=== PATIENT | male | born 1960 | race Caucasian/White ===

== ENCOUNTER 2016-11-04 01:28 | Inpatient (IN) | payer MEDICARE ==
[~2016-11-04] VITALS: Ht 188 cm; Wt 108.8 kg
[2016-11-04] VITALS (7 sets, daily range): BP systolic 128–160; BP diastolic 60–84; PULSE 74–83; RESP 16–19; TEMP 96.3–98.3; O2SAT 94–99
--- NOTE | 2016-11-04 02:30 | PD ---
HPI Chief Complaint: Psychiatric Symptoms Time Seen by Provider: 02:27 Travel History International Travel<30 days: No Contact w/Intl Traveler<30days: No Traveled to known affect area: No History of Present Illness HPI 56-year-old white male presents to emergency department under [place] act by PD. The patient was contacted by PD as he was walking down the street. The patient was slow to respond to PD. They felt that the patient was unreliable and they were concerned that he was suffering from mental illness. The patient states that he takes INVega. He states that he is behind on his injections. He denies any suicidal homicidal ideation. He admits to tobacco and alcohol. He denies any other drugs. He denies any medical complaints. [facility] Past Medical History Narrative Medical Schizophrenia Tetanus Vaccination: Unknown Past Surgical History Surgical History: No Previous Surgery Social History Alcohol Use: Yes Tobacco Use: Yes Substance Use: No Allergies-Medications (Allergen,Severity, Reaction): Coded Allergies: No Known Allergies (Unverified , 11/04/16) Reported Meds & Prescriptions Reported Meds & Active Scripts Active No Active Prescriptions or Reported Medications Review of Systems ROS Limitations: Poor Historian Psychiatric: No: Anxiety, Depression, Suicidal Ideations, Disorder of Thought, Mood Disorder, Substance Abuse, Homicidal Ideation Physical Exam Narrative GENERAL: Well-nourished, well-developed patient. SKIN: Warm and dry. HEAD: Normocephalic and atraumatic. EYES: No scleral icterus. No injection or drainage. ENT: No nasal drainage noted. Mucous membranes pink. Airway patent. NECK: Supple, trachea midline. Moves head freely without obvious discomfort. CARDIOVASCULAR: Regular rate and rhythm without murmurs, gallops, or rubs. RESPIRATORY: Breath sounds equal bilaterally. No accessory muscle use. GASTROINTESTINAL: Abdomen soft, non-tender, nondistended. EXTREMITIES: No cyanosis or edema. BACK: Nontender without obvious deformity. No CVA tenderness. NEURO: Patient is alert and oriented. no sensorimotor deficits. Nonfocal. Normal speech. PSYCH: No delusions. No auditory or visual hallucinations. Data Data Last Documented VS Vital Signs Date Time Temp Pulse Resp B/P Pulse Ox O2 Delivery O2 Flow Rate FiO2 11/04/16 02:43 16 11/04/16 02:25 98.3 83 148/73 98 Orders Complete Blood Count With Diff (11/04/16 02:02) Comprehensive Metabolic Panel (11/04/16 02:02) Psych Screen (11/04/16 02:02) Drug Screen, Random Urine (11/04/16 02:02) Alcohol (Ethanol) (11/04/16 02:02) Labs Laboratory Tests Test 11/04/16 02:35 White Blood Count 10.1 TH/MM3 Red Blood Count 5.27 MIL/MM3 Hemoglobin 16.6 GM/DL Hematocrit 47.8 % Mean Corpuscular Volume 90.8 FL Mean Corpuscular Hemoglobin 31.6 PG Mean Corpuscular Hemoglobin 34.8 % Concent Red Cell Distribution Width 14.2 % Platelet Count 360 TH/MM3 Mean Platelet Volume 7.7 FL Neutrophils (%) (Auto) 71.3 % Lymphocytes (%) (Auto) 17.5 % Monocytes (%) (Auto) 8.5 % Eosinophils (%) (Auto) 1.9 % Basophils (%) (Auto) 0.8 % Neutrophils # (Auto) 7.2 TH/MM3 Lymphocytes # (Auto) 1.8 TH/MM3 Monocytes # (Auto) 0.9 TH/MM3 Eosinophils # (Auto) 0.2 TH/MM3 Basophils # (Auto) 0.1 TH/MM3 CBC Comment DIFF FINAL Differential Comment Sodium Level 137 MEQ/L Potassium Level 3.5 MEQ/L Chloride Level 100 MEQ/L Carbon Dioxide Level 27.5 MEQ/L Anion Gap 10 MEQ/L Blood Urea Nitrogen 9 MG/DL Creatinine 0.80 MG/DL Estimat Glomerular Filtration 101 ML/MIN Rate Random Glucose 105 MG/DL Calcium Level 9.0 MG/DL Total Bilirubin 0.6 MG/DL Aspartate Amino Transf 15 U/L (AST/SGOT) Alanine Aminotransferase 21 U/L (ALT/SGPT) Alkaline Phosphatase 66 U/L Total Protein 7.1 GM/DL Albumin 3.9 GM/DL Urine Opiates Screen NEG Urine Barbiturates Screen NEG Urine Amphetamines Screen NEG Urine Benzodiazepines Screen NEG Urine Cocaine Screen NEG Urine Cannabinoids Screen NEG Ethyl Alcohol Level LESS THAN 3 MG/DL MDM Medical Decision Making Medical Screen Exam Complete: Yes Emergency Medical Condition: Yes Medical Record Reviewed: Yes Interpretation(s) Laboratory Tests Test 11/04/16 02:35 White Blood Count 10.1 TH/MM3 Red Blood Count 5.27 MIL/MM3 Hemoglobin 16.6 GM/DL Hematocrit 47.8 % Mean Corpuscular Volume 90.8 FL Mean Corpuscular Hemoglobin 31.6 PG Mean Corpuscular Hemoglobin 34.8 % Concent Red Cell Distribution Width 14.2 % Platelet Count 360 TH/MM3 Mean Platelet Volume 7.7 FL Neutrophils (%) (Auto) 71.3 % Lymphocytes (%) (Auto) 17.5 % Monocytes (%) (Auto) 8.5 % Eosinophils (%) (Auto) 1.9 % Basophils (%) (Auto) 0.8 % Neutrophils # (Auto) 7.2 TH/MM3 Lymphocytes # (Auto) 1.8 TH/MM3 Monocytes # (Auto) 0.9 TH/MM3 Eosinophils # (Auto) 0.2 TH/MM3 Basophils # (Auto) 0.1 TH/MM3 CBC Comment DIFF FINAL Differential Comment Sodium Level 137 MEQ/L Potassium Level 3.5 MEQ/L Chloride Level 100 MEQ/L Carbon Dioxide Level 27.5 MEQ/L Anion Gap 10 MEQ/L Blood Urea Nitrogen 9 MG/DL Creatinine 0.80 MG/DL Estimat Glomerular Filtration 101 ML/MIN Rate Random Glucose 105 MG/DL Calcium Level 9.0 MG/DL Total Bilirubin 0.6 MG/DL Aspartate Amino Transf 15 U/L (AST/SGOT) Alanine Aminotransferase 21 U/L (ALT/SGPT) Alkaline Phosphatase 66 U/L Total Protein 7.1 GM/DL Albumin 3.9 GM/DL Urine Opiates Screen NEG Urine Barbiturates Screen NEG Urine Amphetamines Screen NEG Urine Benzodiazepines Screen NEG Urine Cocaine Screen NEG Urine Cannabinoids Screen NEG Ethyl Alcohol Level LESS THAN 3 MG/DL Differential Diagnosis MDM: High Differential diagnoses: Schizophrenia, schizoaffective disorder, bipolar, anxiety, depression, adjustment reaction, mood disorder NOS, ODD, depressive disorder NOS, dementia, dementia with agitation, psychosis NOS, substance induced mood disorder, intermittent explosive disorder, Asperger syndrome, infection,electrolyte abnormality, malingering. Narrative Course Mental health screening discussed with the patient. Psychiatric screen ordered. The patient been medically cleared. This is medical clearance for psychological evaluation Diagnosis Primary Impression: medical clearance for psychological evaluation Scripts No Active Prescriptions or Reported Meds Condition: Isai Pablo Nov 04, 2016 02:30
[2016-11-04 02:50] LABS: AUTOMATED NEUTROPHIL # 7.2 TH/MM3 (1.8-7.7); BASOPHIL # 0.1 TH/MM3 (0-0.2); BASOPHIL % 0.8 % (0.0-2.0); EOSINOPHIL # 0.2 TH/MM3 (0-0.4); EOSINOPHIL % 1.9 % (0.0-4.0); HEMATOCRIT 47.8 % (39.0-51.0); HEMO FLAGS DIFF FINAL; LYMPH % 17.5 % (9.0-44.0); LYMPHOCYTE # 1.8 TH/MM3 (1.0-4.8); MEAN CELL VOLUME 90.8 FL (80.0-100.0); MEAN CORPUSCULAR HEMOGLOBIN 31.6 PG (27.0-34.0); MEAN CORPUSCULAR HGB CONC 34.8 % (32.0-36.0); MONO % 8.5 % (0.0-8.0); NEUT % 71.3 % (16.0-70.0); PLATELET COUNT 360 TH/MM3 (150-450); RED BLOOD COUNT 5.27 MIL/MM3 (4.50-5.90); RED CELL DISTRIBUTION WIDTH 14.2 % (11.6-17.2); WHITE BLOOD COUNT 10.1 TH/MM3 (4.0-11.0)
[2016-11-04 02:59] LABS: AMPHETAMINE, URINE NEG (NEG); BARBITURATES, URINE NEG (NEG); COCAINE, URINE NEG (NEG)
[2016-11-04 03:14] LABS: ALT (GPT) 21 U/L (12-78); ANION GAP 10 MEQ/L (5-15); AST (GOT) 15 U/L (15-37); BICARBONATE 27.5 MEQ/L (21.0-32.0); BLOOD UREA NITROGEN 9 MG/DL (7-18); CHLORIDE 100 MEQ/L (98-107); GLOMERULAR FILTRATION RATE 101 ML/MIN (>89); POTASSIUM 3.5 MEQ/L (3.5-5.1); SODIUM (NA) 137 MEQ/L (136-145)
[2016-11-04 03:17] LABS: ALKALINE PHOSPHATASE 66 U/L (45-117); TOTAL BILIRUBIN ADULT 0.6 MG/DL (0.2-1.0)
[2016-11-04] MEDS ORDERED: INVE6TAB3 PO (06:03)
[2016-11-05 06:29] VITALS: RESP 18
[2016-11-05 12:44] VITALS: BP 115/59; PULSE 77; RESP 18; O2SAT 97
[2016-11-05 22:42] VITALS: BP 168/82; PULSE 83; RESP 19; O2SAT 97
[2016-11-06 02:22] VITALS: BP 120/58; PULSE 66; RESP 18
[2016-11-06 05:15] VITALS: BP 146/81; PULSE 72; RESP 19; O2SAT 97
[2016-11-06] MEDS ORDERED: INVE6TAB3 PO (07:50)
[2016-11-06] MEDS ORDERED: VIST50CA PO (07:50)
[2016-11-06] MEDS ORDERED: BENZTROPINE MESYLATE 2 MG/2 ML VIAL IM PRN (08:00)
[2016-11-06] MEDS ORDERED: LORazepam 2 MG/ML VIAL IM PRN (08:00)
[2016-11-06] MEDS ORDERED: BENZTROPINE MESYLATE 1 MG TAB PO PRN (08:00)
[2016-11-06] MEDS ORDERED: LORazepam 1 MG TAB PO PRN (08:00)
[2016-11-06] MEDS ORDERED: MAGNESIUM HYDROXIDE SUSP 30 ML CUP PO PRN (08:00)
[2016-11-06] MEDS ORDERED: ALUMINUM/MAGNESIUM/SIMETH 30 ML CUP PO PRN (08:00)
--- NOTE | 2016-11-06 08:05 | HHI.HP ---
Provisional Diagnosis Admission Date 11/06/2016 [place] I. 1. Schizophrenia, undifferentiated type, acute exacerbation [place] II. Deferred [place] V. GAF is 30 presently Certification of Person's Competence To Provide Express and Informed Consent I have personally examined Trey Tian , a person being served at [facility] on, Nov 06, 2016 07:52. Express and informed consent means consent voluntarily given in writing, by a competent person, after sufficient explanation and disclosure of the subject matter involved to enable the person to make a knowing and willful decision without any element of force, fraud, deceit, duress, or other form of constraint or coercion. This person is 18 years of age or older, is not now known to be incompetent to consent to treatment with a guardian advocate, and does not have a health care surrogate or proxy currently making medical treatment decisions. I have found this person to be one of the following: [] Competent to provide express and informed consent, as defined above, for voluntary admission to this facility and is competent to provide express and informed consent for treatment. He/she has the consistent capacity to make well reasoned, willful, and knowing decisions concerning his or her medical or mental health treatment. The person fully and consistently understands the purpose of the admission for examination/placement and is fully capable of personally exercising all rights assured [place] Incompetent to provide express and informed consent to voluntary admission, and this is incompetent to provide express and informed consent to treatment. The person must be transferred to involuntary status and a petition for a guardian advocate filed with the Circuit Court. [x] Refusing to provide express and informed consent to voluntary admission but is competent to provide express and informed consent for treatment. The person must be discharged or transferred to involuntary status. Form shall be completed within 24 hours of a person's arrival at the receiving facility and filed in the clinical record of each person: 1. Admitted on a voluntary basis 2. Permitted to provide express and informed consent to his/her own treatment 3. Allowed to transfer from involuntary to voluntary status 4. Prior to permitting a person to consent to his or her own treatment after having been previously found incompetent to consent to treatment. History of Present Illness Capacity: Has Capacity (to consent for medications) HPI Mr. Tian is a 56-year-old male with a history of schizophrenia who presents under a [place] act by [facility]'s office alleging that the patient was walking down a end street and when approached by the officers remain silent and would not answer questions. He appeared to be chewing on what turned out to be opined treat Perfecto. Officer was allegedly later advised that the patient was a suspect in a trespassing complaint after becoming hostile in a store. Reviewing our electronic medical record, it appears this is patient's first visit to [place]. Patient seen and examined. Chart reviewed. Case discussed with nurse in the J- pod. Nurse has been in contact with Víctor Londono, with whom the patient follows on an outpatient basis. The patient is prescribed Invega 6 mg twice daily and Vistaril 50 mg twice daily. He was last seen in the office there on October 24. On my examination today, patient presents as malodorous and disheveled. He is extremely psychomotor slowed with thought blocking, which somewhat limits the interview. He is an extremely vague historian with poverty of thought and speech. What I endeavored to inquire as to whether he is experiencing audiovisual hallucinations, he remains noncommittal. He does appear internally preoccupied. He does not verbalize any SI or HI but is unreliable contract for safety at present. At one point, he says "no sir, it's not Mr. Tian and you know that." Affect is quite flat. Psychiatric interview limited for reasons noted above. Past psychiatric history: Patient alludes to a 30 year history of mental illness. Beyond that, I cannot get much from him. See collateral obtained by nursing staff from patient's outpatient provider, above. Family history: "Well sitter, to tell you the truth, I'm not sure I have much family left." When I inquire as to whether his family had mental illness while they were living, he says "well, yes." Chemical dependency history: "I never really learned how to explain that, sir." Urine toxicology and alcohol level both negative. Social history: When I ask about marital status and children he says "that's the fallacy that I could never explain to you, sir." He does not answer when I ask about level of education. When I ask about history he says "I would like to apply for some work." At this point, he tires of the interview and says "I don't want to talk about anymore of that." When I press a little further he says with an air of finality "well, sir, that's enough." Patient is unable or perhaps unwilling to provide me with any contact information for collateral. He says that he needs to think about it. Review of Systems ROS Limitations: Psychotic, Poor Historian Other No reported headache, vision or hearing changes, chest pain, shortness of breath , bowel or bladder issues. No other reported physical complaints. Past Psych History Psychological trauma history No reported trauma history Violence risk - others (6 mos) Indeterminate. Allegations of hostility in a store. Patient is presently calm but psychotic and unpredictable. Violence risk - self (6 mos) Indeterminate at present. Substance Abuse History Drugs/Alcohol past 12 months See above Past Family Social History Coded Allergies: No Known Allergies (Unverified , 11/04/16) Past Medical History Patient unable to provide. Unclear at present. Reported Medications Hydroxyzine Pamoate (Vistaril)50 Mg Cap50 Mg PO BID Ref 0 11/06/16 Paliperidone ER (Invega)6 Mg Tab6 Mg PO BID #30 TAB Ref 0 11/06/16 Discontinued Reported Medications Paliperidone ER (Invega)6 Mg Tab6 Mg PO DAILY #30 TAB Ref 0 11/04/16 See above Family History See above Social History See above Patient's Strengths (min. 2) In a monitored setting. Verbally fluent. Physical Exam Physical examination completed by ED provider. On my examination today, patient presents as disheveled but otherwise fairly well-nourished and well- developed and in no acute physical distress. No hand tremor, no dystonia, no dyskinesia, no other motoric abnormalities noted. Labs and vital signs reviewed : Vital Signs Vital Signs Date Time Temp Pulse Resp B/P Pulse Ox O2 Delivery O2 Flow Rate FiO2 11/06/16 06:37 72 19 11/06/16 05:15 146/81 97 Room Air 11/06/16 02:22 99 11/04/16 12:54 96.3 Lab Results Item Value Date Time White Blood Count 10.1 TH/MM3 11/04/16 023 Hemoglobin 16.6 GM/DL 11/04/16 023 Platelet Count 360 TH/MM3 11/04/16 0235 Sodium Level 137 MEQ/L 11/04/16 0235 Potassium Level 3.5 MEQ/L 11/04/16 0235 Chloride Level 100 MEQ/L 11/04/16 0235 Carbon Dioxide Level 27.5 MEQ/L 11/04/16 0235 Blood Urea Nitrogen 9 MG/DL 11/04/16 0235 Creatinine 0.80 MG/DL 11/04/16 0235 Aspartate Amino Transf (AST/SGOT) 15 U/L 11/04/16 0235 Alanine Aminotransferase (ALT/SGPT) 21 U/L 11/04/16 0235 Alkaline Phosphatase 66 U/L 11/04/16 0235 Random Glucose 105 MG/DL 11/04/16 023 Urine toxicology and alcohol level undetectable. Mental Status Examination Patient is in hospital gown. He is somewhat disheveled and malodorous. He is awake and alert and oriented to person. When I endeavored to perform mental status testing, the patient is either unable or unwilling to cooperate. He says "it is just a joke, sir." Patient is somewhat psychomotor slowed but otherwise there are no abnormal motor movements noted. No posturing or stereotypies or other signs of catatonia. Language and fund of knowledge are difficult to assess at present. Speech is extremely slow and monotone and there is paucity of speech. Difficult to assess mood but affect is quite flat. Thought process slowed with significant thought blocking. Difficult to assess but there is likely some underlying paranoia. Patient does appear somewhat internally stimulated. Patient does not verbalize any SI or HI but is unreliable to contract for safety at present. Insight and judgment are poor. Assessment & Plan Problem List: (1) Schizophrenia ICD Code: F20.9 Assessment & Plan This is a 56-year-old male with psychiatric history as detailed above who presents to the ED under a [place] act. On my examination today, the patient presents as psychomotor slowed with thought blocking and appearance of internal stimulation. Unclear if there was some degree of medication nonadherence but the patient does have a history of schizophrenia, treated on an outpatient basis at [facility]. There are note presently any signs of catatonia, but this is certainly in the differential. No evident medical cause for patient's current presentation based on laboratories and exam. I suspect patient is experiencing a decompensated psychotic episode and requires psychiatric admission for safety , observation and stabilization. Admit inpatient. Patient is presently not consenting for admission, and I have initiated a petition for involuntary psychiatric hospitalization and consulted for a second. Patient does retain capacity at this time to consent for medications. I will first try to resume outpatient medication regimen of Invega 6mg twice daily and Vistaril. If this is helpful, we could consider Invega Sustenna. Ativan as needed for anxiety, Cogentin as needed for EPS, Benadryl as needed for sleep. Vitals every shift. Counselor to see him try to obtain collateral. Disposition planning. Estimated length of stay: 5-7 days. Discharge Planning Pending psychiatric stabilization Request HC Surrog/Guard Advoc?: No (not at this time) Problem Qualifiers (1) Schizophrenia: Qualified Code: F20.3 - Undifferentiated schizophrenia Lui Petit MD Nov 06, 2016 08:05
[2016-11-06] MEDS: REMOVE OLD PATCH T-DERMAL SCH (09:00)
[2016-11-06] MEDS: PALIPERIDONE ER 6 MG TAB PO SCH ×2 (09:00→21:00)
[2016-11-06] MEDS: NICOTINE 21 MG/24 HR PATCH T-DERMAL SCH (09:00)
[2016-11-06 10:35] VITALS: BP 148/82; PULSE 79; RESP 18; TEMP 98.2; O2SAT 95
--- NOTE | 2016-11-06 15:03 | PD.CONS ---
Provisional Diagnosis Admission Date Nov 06, 2016 at 07:50 [place] I. 1. Schizophrenia, undifferentiated type, acute exacerbation [place] II. Deferred [place] V. GAF is 30 presently History of Present Illness Service Psychiatry Consult Requested By Primary Care Physician No Primary Care Physician HPI Mr. Tian is a 56-year-old male with a history of schizophrenia who presents under a [place] act by [facility]'s office alleging that the patient was walking down a end street and when approached by the officers remain silent and would not answer questions. He appeared to be chewing on what turned out to be opined treat Perfecto. Officer was allegedly later advised that the patient was a suspect in a trespassing complaint after becoming hostile in a store. Reviewing our electronic medical record, it appears this is patient's first visit to [place]. Patient seen and examined. Chart reviewed. Case discussed with nurse in the J- pod. Nurse has been in contact with Víctor Londono, with whom the patient follows on an outpatient basis. The patient is prescribed Invega 6 mg twice daily and Vistaril 50 mg twice daily. He was last seen in the office there on October 24. On my examination today, patient presents as malodorous and disheveled. He is extremely psychomotor slowed with thought blocking, which somewhat limits the interview. He is an extremely vague historian with poverty of thought and speech. What I endeavored to inquire as to whether he is experiencing audiovisual hallucinations, he remains noncommittal. He does appear internally preoccupied. He does not verbalize any SI or HI but is unreliable contract for safety at present. At one point, he says "no sir, it's not Mr. Tian and you know that." Affect is quite flat. Psychiatric interview limited for reasons noted above. Past psychiatric history: Patient alludes to a 30 year history of mental illness. Beyond that, I cannot get much from him. See collateral obtained by nursing staff from patient's outpatient provider, above. Family history: "Well sitter, to tell you the truth, I'm not sure I have much family left." When I inquire as to whether his family had mental illness while they were living, he says "well, yes." Chemical dependency history: "I never really learned how to explain that, sir." Urine toxicology and alcohol level both negative. Social history: When I ask about marital status and children he says "that's the fallacy that I could never explain to you, ." He does not answer when I ask about level of education. When I ask about history he says "I would like to apply for some work." At this point, he tires of the interview and says "I don't want to talk about anymore of that." When I press a little further he says with an air of finality "well, sir, that's enough." Patient is unable or perhaps unwilling to provide me with any contact information for collateral. He says that he needs to think about it. 11/06/16 Above note dictated by Dr. petit reviewed and agreed with. Patient is a 56- year-old male admitted to Dr. Petit service under the [employer] act. Patient seen by me with nurse in his room. Patient is disheveled and malodorous making no eye contact having mumbled answers and is somewhat angry manner. Is vague about auditory hallucinations is vague about compliance medication is vague about having mental illness. Dr. Petit #first opinion petition supporting [employer] act. I agree. Patient does meet criteria for involuntary psychiatric hospitalization under the [place] act. Thus will cosign second opinion petition supporting [employer] act Past Family Social History Coded Allergies: No Known Allergies (Unverified , 11/04/16) Reported Medications Hydroxyzine Pamoate (Vistaril)50 Mg Cap50 Mg PO BID Ref 0 11/06/16 Paliperidone ER (Invega)6 Mg Tab6 Mg PO BID #30 TAB Ref 0 11/06/16 Discontinued Reported Medications Paliperidone ER (Invega)6 Mg Tab6 Mg PO DAILY #30 TAB Ref 0 11/04/16 Current Medications Medications (Trade) Dose Ordered Sig/Franko Route Start Time Stop Time Status Last Admin (Ativan) 1 mg Q6H PRN PO 11/06/16 08:00 (Ativan Inj) 1 mg Q6H PRN IM 11/06/16 08:00 (Benadryl) 50 mg HS PRN PO 11/06/16 08:00 (Tylenol) 650 mg Q4H PRN PO 11/06/16 08:00 (Milk Of Magnesia Liq) 30 ml DAILY PRN PO 11/06/16 08:00 (Mag-Al Plus Susp Liq) 30 ml Q6H PRN PO 11/06/16 08:00 (Habitrol 21 Mg Patch.24 Hr) 1 patch DAILY T-DERMAL 11/06/16 09:00 (Cogentin) 1 mg Q12H PRN PO 11/06/16 08:00 (Cogentin Inj) 1 mg Q12H PRN IM 11/06/16 08:00 Miscellaneous Information 1 DAILY T-DERMAL 11/06/16 09:00 (Invega Er) 6 mg BID PO 11/06/16 09:00 11/06/16 09:00 (Vistaril) 50 mg BID PO 11/06/16 09:00 11/06/16 09:00 Patient's Strengths (min. 2) In a monitored setting. Verbally fluent. Physical Exam Vital Signs Vital Signs Date Time Temp Pulse Resp B/P Pulse Ox O2 Delivery O2 Flow Rate FiO2 11/06/16 10:35 98.2 79 18 148/82 95 11/06/16 05:15 Room Air 11/06/16 02:22 99 Mental Status Examination 56 old white male who appears stated age in bed markedly psychomotor retarded with a very slow poor brief responses Appearance Disheveled and malodorous Speech: Hesitant, Slow, Other (whispered) Orientation: Person, Place Memory: Impaired (describe) Thought Process: Linear Thought Content: Paranoid Hallucination Type: None (denies) Attention and Concentration: Other (poor) Suicidal Ideation: No Previous Suicide Attempts: No (denies) Homicidal Ideation: No (denies) Previous Homicide Attempts: No Insight: Poor Judgement: Poor Affect: Other (marked decrease range of motion intensity) Mood: Irritable, Other (strict did) Motor Activity: Normal gait Assessment & Plan Problem List: (1) Schizophrenia ICD Code: F20.9 Assessment & Plan To be determined Request HC Surrog/Guard Advoc?: No (not at this time) Problem Qualifiers (1) Schizophrenia: Qualified Code: F20.3 - Undifferentiated schizophrenia Trey Marlow MD Nov 06, 2016 15:03
[2016-11-06 17:51] VITALS: BP 152/74; PULSE 58; RESP 18; TEMP 98.3; O2SAT 96
[2016-11-07 06:18] VITALS: BP 134/63; PULSE 63; RESP 18; TEMP 97.8; O2SAT 93
[2016-11-07 08:18] LABS: ANION GAP 6 MEQ/L (5-15); BICARBONATE 30.4 MEQ/L (21.0-32.0); BLOOD UREA NITROGEN 11 MG/DL (7-18); CHLORIDE 102 MEQ/L (98-107); GLOMERULAR FILTRATION RATE 110 ML/MIN (>89); HDL CHOLESTEROL 39.8 MG/DL (40.0-60.0); LDL CHOLESTEROL 67 MG/DL (0-99); POTASSIUM 4.1 MEQ/L (3.5-5.1); SODIUM (NA) 138 MEQ/L (136-145)
[2016-11-07] MEDS: REMOVE OLD PATCH T-DERMAL SCH (09:00)
[2016-11-07] MEDS: PALIPERIDONE ER 6 MG TAB PO SCH ×2 (09:00→20:15)
[2016-11-07] MEDS: NICOTINE 21 MG/24 HR PATCH T-DERMAL SCH (09:00)
--- NOTE | 2016-11-07 09:53 | HHI.PYPN ---
Subjective Remarks Patient seen and examined. Chart reviewed. Case discussed with nursing staff who reports that the patient refused Invega overnight. Patient reportedly also fairly behaviorally disorganized. For example, he requested a urinal from the RN and then was preparing to use it in the hallway in full view of the unit before he was reminded by staff where he was. On my examination today, patient is calm but disorganized. He does engage in some echopraxia. Psychotic ambivalence is present. When I ask if he is experiencing AVH, he says, "yes, and also no." He did accept Invega yesterday morning and this morning and has no evident side effects from this. Review of Systems ROS Limitations: Psychotic, Poor Historian Other No physical complaints today. Objective Alert: Yes [place]: Person Mood: Calm Affect: Blunted Memory Intact: Comment (Not formally assessed) Hallucinations: Other (Appears internally preoccupied.) Delusions: No Delusion Type: Other (None elicited) Suicidal: Ideation (No SI) Homicidal: Ideation (No HI) Insight/Judgement Poor Remarks Some echopraxia noted. TP disorganized. Grooming and hygiene fair at best. Labs Test 11/07/16 07:30 Sodium Level 138 MEQ/L Potassium Level 4.1 MEQ/L Chloride Level 102 MEQ/L Carbon Dioxide Level 30.4 MEQ/L Anion Gap 6 MEQ/L Blood Urea Nitrogen 11 MG/DL Creatinine 0.74 MG/DL Estimat Glomerular Filtration 110 ML/MIN Rate Random Glucose 82 MG/DL Calcium Level 8.4 MG/DL Triglycerides Level 102 MG/DL Cholesterol Level 127 MG/DL LDL Cholesterol 67 MG/DL HDL Cholesterol 39.8 MG/DL Cholesterol/HDL Ratio 3.19 RATIO Labs reviewed. HgbA1c pending. Vitals/IOs Vital Signs Date Time Temp Pulse Resp B/P Pulse Ox O2 Delivery O2 Flow Rate FiO2 11/07/16 06:18 97.8 63 18 134/63 93 11/06/16 05:15 Room Air 11/06/16 02:22 99 Assessment & Plan Problem List: (1) Schizophrenia ICD Code: F20.9 Assessment & Plan Continue to offer oral Invega and Vistaril. Patient would likely do well with Invega Sustenna if he will consent for this. Continue to monitor on the inpatient unit. Continue other medications and care as ordered. Justification for Cont. Inpt. Impairment in reality testing. Impairment in social function. Discharge Planning Pending stabilization. Request HC Surrog/Guard Advoc?: No Problem Qualifiers (1) Schizophrenia: Qualified Code: F20.3 - Undifferentiated schizophrenia Lui Petit MD Nov 07, 2016 09:53
[2016-11-07 17:21] LABS: HEMOGLOBIN A1a 0.9 %; HEMOGLOBIN Ao 85.6 %; HEMOGLOBIN F 1.1 %; HEMOGLOBIN LA1C 1.9 %; HEMOGLOBIN P3 3.4 %
[2016-11-07 18:21] VITALS: BP 133/81; PULSE 91; RESP 18; TEMP 98.5; O2SAT 96
[2016-11-08 06:05] VITALS: BP 128/70; PULSE 70; RESP 18; TEMP 97.9; O2SAT 96
[2016-11-08] MEDS: PALIPERIDONE ER 6 MG TAB PO SCH ×2 (08:42→20:51)
[2016-11-08] MEDS: NICOTINE 21 MG/24 HR PATCH T-DERMAL SCH (09:00)
[2016-11-08] MEDS: REMOVE OLD PATCH T-DERMAL SCH (09:00)
--- NOTE | 2016-11-08 13:59 | HHI.PYPN ---
Subjective Remarks Patient seen and examined. Chart reviewed. Case discussed with nursing staff. On my examination today, patient is calm and pleasant. He is sitting in the day room. His thought process seems more organized on Invega. No SI or HI. He is agreeable to starting Invega Sustenna after a discussion of the risks and benefits. He denies side effects from the Invega or other medications. Review of Systems ROS Limitations: Poor Historian Other No physical complaints today Objective Alert: Yes [place]: Person, Place Mood: Calm Affect: Blunted Memory Intact: Comment (not assessed) Hallucinations: Other (perhaps a little less internally preoccupied) Delusions: No Delusion Type: Other (none) Suicidal: Ideation (No SI) Homicidal: Ideation (No HI) Insight/Judgement Poor Remarks Thought process somewhat more organized. Speech within normal limits for rate, tone and volume. Grooming and hygiene are fair. No motor abnormalities noted. Labs Labs reviewed. No new labs. Vitals/IOs Vital Signs Date Time Temp Pulse Resp B/P Pulse Ox O2 Delivery O2 Flow Rate FiO2 11/08/16 06:05 97.9 70 18 128/70 96 11/06/16 05:15 Room Air 11/06/16 02:22 99 Assessment & Plan Problem List: (1) Schizophrenia ICD Code: F20.9 Assessment & Plan Invega Sustenna 234 mg IM today with plans for a booster dose after the weekend. Given the degree of psychotic decompensation he exhibited on initial presentation, I will temporarily continue the oral Invega even though this is not technically required. We will monitor for side effects. Continue to monitor on the inpatient unit. Continue other medications and care as ordered. Justification for Cont. Inpt. Impairment in reality construction. Medication changes in process. High risk for decompensation pending completion of medication changes. Discharge Planning Pending psychiatric stabilization. Hopeful that the patient will be ready for discharge shortly after administration of booster dose of Invega Sustenna, i.e. beginning of next week. Request HC Surrog/Guard Advoc?: No Problem Qualifiers (1) Schizophrenia: Qualified Code: F20.3 - Undifferentiated schizophrenia Lui Petit MD Nov 08, 2016 13:59
[2016-11-08] MEDS ORDERED: PALIPERIDONE PALMITATE 234 MG/1.5 ML SYRINGE IM ONE (14:00)
[2016-11-08 17:25] VITALS: BP 106/63; PULSE 93; RESP 18; TEMP 98.6
[2016-11-08] MEDS: ACETAMINOPHEN 325 MG TAB PO PRN (20:52)
[2016-11-09 06:13] VITALS: BP 141/76; PULSE 68; RESP 18; TEMP 98.2; O2SAT 98
[2016-11-09] MEDS: ACETAMINOPHEN 325 MG TAB PO PRN (08:54)
[2016-11-09] MEDS: PALIPERIDONE ER 6 MG TAB PO SCH ×2 (08:54→20:59)
--- NOTE | 2016-11-09 11:10 | HHI.PYPN ---
Subjective Remarks Patient discussing his wish to donate some property he owns 2 and unknown cristel. This physician is unable to determine if he actually owns and he property. However he remains off task. Review of Systems ROS Limitations: Clinical Condition Except as stated in HPI: all other systems reviewed are Neg Objective Alert: Yes [place]: Person, Place Mood: Anxious Affect: Restricted, Blunted Memory Intact: Comment (not assessed) Hallucinations: Other (perhaps a little less internally preoccupied) Delusions: Yes Delusion Type: Paranoid, Other (none) Suicidal: Ideation (No SI) Homicidal: Ideation (No HI) Insight/Judgement Impaired. Vitals/IOs Vital Signs Date Time Temp Pulse Resp B/P Pulse Ox O2 Delivery O2 Flow Rate FiO2 11/09/16 06:13 98.2 68 18 141/76 98 11/06/16 05:15 Room Air 11/06/16 02:22 99 Assessment & Plan Problem List: (1) Schizophrenia ICD Code: F20.9 Assessment & Plan Estimated LOS: 5 days patient remains psychotic but at least he is fairly calm. We'll consider hydrating the antipsychotic medication and providing more time for efficacy. Justification for Cont. Inpt. Unable to care for self. Request HC Surrog/Guard Advoc?: No Problem Qualifiers (1) Schizophrenia: Qualified Code: F20.3 - Undifferentiated schizophrenia Ilya Winters MD Nov 09, 2016 11:10
[2016-11-09 17:30] VITALS: BP 141/76; PULSE 68; RESP 18; TEMP 98.2; O2SAT 98
[2016-11-10 06:04] VITALS: BP 121/60; PULSE 57; RESP 16; TEMP 98; O2SAT 97
[2016-11-10] MEDS: PALIPERIDONE ER 6 MG TAB PO SCH ×2 (08:37→20:41)
--- NOTE | 2016-11-10 18:04 | HHI.PYPN ---
Subjective Remarks Patient was seen and case discussed with nursing. Patient is behaving well, sleeping well on the unit. Denies auditory or visual hallucinations. No delusions could be elicited. Insight remains poor. Largely seclusive to self. Blunted affect Objective Alert: Yes [place]: Person, Place Mood: Calm Affect: Blunted Memory Intact: Comment (not assessed) Hallucinations: Other (perhaps a little less internally preoccupied) Delusions: Yes Delusion Type: Paranoid (mildly) Suicidal: Ideation (No SI) Homicidal: Ideation (No HI) Insight/Judgement Poor Vitals/IOs Vital Signs Date Time Temp Pulse Resp B/P Pulse Ox O2 Delivery O2 Flow Rate FiO2 11/10/16 06:04 98.0 57 16 121/60 97 Assessment & Plan Problem List: (1) Schizophrenia ICD Code: F20.9 Assessment & Plan Continue current treatment plan Justification for Cont. Inpt. Patient will decompensate in a less restrictive setting Request HC Surrog/Guard Advoc?: No Problem Qualifiers (1) Schizophrenia: Qualified Code: F20.3 - Undifferentiated schizophrenia Mike Rivera DO Nov 10, 2016 18:04
[2016-11-10 19:02] VITALS: BP 130/61; PULSE 59; RESP 18; TEMP 98.7; O2SAT 98
[2016-11-10] MEDS: diphenhydrAMINE HCL 50 MG CAP PO PRN (20:42)
[2016-11-11] MEDS: ACETAMINOPHEN 325 MG TAB PO PRN ×2 (01:40→09:10)
[2016-11-11 05:43] VITALS: BP 134/69; PULSE 83; RESP 18; TEMP 98.1; O2SAT 95
[2016-11-11] MEDS: PALIPERIDONE ER 6 MG TAB PO SCH ×2 (09:06→20:13)
--- NOTE | 2016-11-11 15:13 | HHI.PYPN ---
Subjective Remarks Patient was seen and case discussed with nursing. Patient is pleasant and cooperative with exam. She remains flat and internally preoccupied. Says he enjoys talking to himself but is not sure if he has hallucinations. Sometimes spends extended periods of time staring into the nursing area. Told attack earlier today that he lost money to black men. His compliant with his medications. Denies suicidal ideation intent or plan Objective Alert: Yes [place]: Person, Place Mood: Calm Affect: Blunted Memory Intact: Comment (not assessed) Hallucinations: Other (perhaps a little less internally preoccupied) Delusions: Yes Delusion Type: Paranoid (mildly) Suicidal: Ideation (No SI) Homicidal: Ideation (No HI) Insight/Judgement Poor Vitals/IOs Vital Signs Date Time Temp Pulse Resp B/P Pulse Ox O2 Delivery O2 Flow Rate FiO2 11/11/16 05:43 98.1 83 18 134/69 95 Assessment & Plan Problem List: (1) Schizophrenia ICD Code: F20.9 Assessment & Plan Continue current treatment plan Justification for Cont. Inpt. Patient will decompensate in a less restrictive setting Request HC Surrog/Guard Advoc?: No Problem Qualifiers (1) Schizophrenia: Qualified Code: F20.3 - Undifferentiated schizophrenia Mike Rivera DO Nov 11, 2016 15:13
[2016-11-11 18:10] VITALS: BP 126/79; PULSE 75; RESP 18; TEMP 97.4; O2SAT 100
[2016-11-11] MEDS: diphenhydrAMINE HCL 50 MG CAP PO PRN (20:13)
[2016-11-12 05:58] VITALS: BP 140/77; PULSE 59; RESP 18; TEMP 97.5; O2SAT 96
[2016-11-12] MEDS: PALIPERIDONE ER 6 MG TAB PO SCH (08:53)
--- NOTE | 2016-11-12 10:20 | HHI.PYPN ---
Subjective Remarks Patient seen and examined with nurse. Chart reviewed. Case discussed with nursing staff who reports that the patient received Benadryl overnight in addition to his Invega and was subsequently incontinent of urine 1 secondary to excessive sedation. On my examination today, the patient reports he had a "good sleep" last night. He does not complain of the incontinence. He seems much more organized today versus before the weekend. He denies any suicidal or homicidal ideation. He denies any audiovisual hallucinations. He would like to sign voluntary and requests to begin final discharge planning. Denies side effects from medications. Review of Systems Other No physical complaints today Objective Alert: Yes [place]: Person, Place (at least) Mood: Calm Affect: Blunted Memory Intact: Comment (not formally assessed) Hallucinations: Other (denies AVH) Delusions: No Delusion Type: Other (no delusions elicited) Suicidal: Ideation (denies SI) Homicidal: Ideation (denies HI) Insight/Judgement Improving Remarks No motoric abnormalities noted. Steady gait and station. Not presently sedated. Thought process linear. Speech within normal limits for rate, tone and volume. Labs Labs reviewed. No new labs. Vitals/IOs Vital Signs Date Time Temp Pulse Resp B/P Pulse Ox O2 Delivery O2 Flow Rate FiO2 11/12/16 05:58 97.5 59 18 140/77 96 Assessment & Plan Problem List: (1) Schizophrenia ICD Code: F20.9 Assessment & Plan Patient's psychosis seems to be improved with the benefit of Invega Sustenna. We will plan to administer the booster dose of Invega Sustenna tomorrow. In the meantime in light of excessive sedation overnight, I will discontinue his oral Invega. Continue to monitor on the inpatient unit. Continue other medications and care as ordered. Patient may sign voluntary at this point. Justification for Cont. Inpt. Medication changes. Discharge Planning Anticipate discharge in next 1-2 days barring clinical deterioration. Request HC Surrog/Guard Advoc?: No Problem Qualifiers (1) Schizophrenia: Qualified Code: F20.3 - Undifferentiated schizophrenia Lui Petit MD Nov 12, 2016 10:20
[2016-11-12 17:55] VITALS: BP 115/72; PULSE 80; RESP 16; TEMP 98.6; O2SAT 95
[2016-11-12] MEDS: diphenhydrAMINE HCL 50 MG CAP PO PRN (20:21)
[2016-11-12] MEDS: ACETAMINOPHEN 325 MG TAB PO PRN (20:21)
[2016-11-13 05:56] VITALS: BP 132/76; PULSE 80; RESP 18; TEMP 97.5; O2SAT 99
[2016-11-13] MEDS ORDERED: PALIPERIDONE PALMITATE 156 MG/ML SYRINGE IM ONE (09:00)
--- NOTE | 2016-11-13 13:04 | HHI.PYPN ---
Subjective Remarks Patient seen and examined. Chart reviewed. Case discussed in treatment team with nurse, counselor and recreation therapist. Per nurse, patient received his Invega Sustenna dose this morning without incident. No reported further episodes of incontinence. On my examination today, the patient is pleasant and cooperative but somewhat hypoverbal. He seems a little bit more disorganized than in previous evaluations. I discussed this with him, and we agreed to add back some of his oral Invega temporarily as he seemed to do better when this was in place. No SI or HI voiced. No reported side effects from medications. Review of Systems ROS Limitations: Poor Historian Other No physical complaints today Objective Alert: Yes [place]: Person (at least) Mood: Calm Affect: Euthymic Memory Intact: Comment (not formally assessed) Hallucinations: Other (no AVH reported) Delusions: No Delusion Type: Other (no dawit delusions) Suicidal: Ideation (no SI) Homicidal: Ideation (no HI) Insight/Judgement Fair at best Remarks No motor abnormalities noted. Thought process perhaps a little more disorganized today. Somewhat hypoverbal as well. Grooming and hygiene good though. Labs Labs reviewed. No new labs. Vitals/IOs Vital Signs Date Time Temp Pulse Resp B/P Pulse Ox O2 Delivery O2 Flow Rate FiO2 11/13/16 05:56 97.5 80 18 132/76 99 Assessment & Plan Problem List: (1) Schizophrenia ICD Code: F20.9 Assessment & Plan Add back PO Invega 3mg BID. This augments Invega Sustenna. Continue to monitor on the inpatient unit. Continue other medications and care as ordered. Justification for Cont. Inpt. Concern for some worsening of patient's thought disorganization. I am making medication changes to try to ameliorate this. I would like to monitor the patient overnight to ensure that he is improving. Discharge Planning Monitor overnight. Possible discharge tomorrow as the patient requests this so long as he is improving from a psychosis standpoint. Request HC Surrog/Guard Advoc?: No Problem Qualifiers (1) Schizophrenia: Qualified Code: F20.3 - Undifferentiated schizophrenia Lui Petit MD Nov 13, 2016 13:04
[2016-11-13 18:11] VITALS: BP 120/99; PULSE 77; RESP 18; TEMP 99.1; O2SAT 99
[2016-11-13] MEDS: diphenhydrAMINE HCL 50 MG CAP PO PRN (20:41)
[2016-11-13] MEDS: PALIPERIDONE ER 3 MG TAB PO SCH (20:41)
[2016-11-14 06:21] VITALS: BP 129/67; PULSE 93; RESP 16; TEMP 98; O2SAT 96
[2016-11-14] MEDS: PALIPERIDONE ER 3 MG TAB PO SCH (09:26)
--- NOTE | 2016-11-14 10:48 | HHI.PYPN ---
Objective Alert: Yes [place]: Person (at least) Mood: Calm Affect: Euthymic Memory Intact: Comment (not formally assessed) Hallucinations: Other (no AVH reported) Delusions: No Delusion Type: Other (no dawit delusions) Suicidal: Ideation (no SI) Homicidal: Ideation (no HI) Vitals/IOs Vital Signs Date Time Temp Pulse Resp B/P Pulse Ox O2 Delivery O2 Flow Rate FiO2 11/14/16 06:21 98.0 93 16 129/67 96 Assessment & Plan Problem List: (1) Schizophrenia ICD Code: F20.9 Assessment & Plan Estimated LOS: days Request HC Surrog/Guard Advoc?: No Problem Qualifiers (1) Schizophrenia: Qualified Code: F20.3 - Undifferentiated schizophrenia Lui Petit MD Nov 14, 2016 10:48
[2016-11-14] MEDS ORDERED: INVE3TAB2 PO (10:53)
[2016-11-14] MEDS ORDERED: PALI156P IM (10:53)
--- NOTE | 2016-11-14 10:53 | HHI.DS ---
Psychiatry Discharge Summary Inpatient Psychiatric care?: Yes Advance Directive: No Reason Not Provided: DOES NOT HAVE Mental Health AdvanceDirective: No Health Care Proxy: No Admission Admission Date Nov 06, 2016 at 07:50 Admission Diagnosis: (1) Schizophrenia ICD Code: F20.9 Brief History Mr. Tian is a 56-year-old male with a history of schizophrenia who presents under a [place] act by [facility]'s office alleging that the patient was walking down a end street and when approached by the officers remain silent and would not answer questions. He appeared to be chewing on what turned out to be opined treat Perfecto. Officer was allegedly later advised that the patient was a suspect in a trespassing complaint after becoming hostile in a store. Reviewing our electronic medical record, it appears this is patient's first visit to [place]. Patient seen and examined. Chart reviewed. Case discussed with nurse in the J- pod. Nurse has been in contact with Víctor Londono, with whom the patient follows on an outpatient basis. The patient is prescribed Invega 6 mg twice daily and Vistaril 50 mg twice daily. He was last seen in the office there on October 24. On my examination today, patient presents as malodorous and disheveled. He is extremely psychomotor slowed with thought blocking, which somewhat limits the interview. He is an extremely vague historian with poverty of thought and speech. What I endeavored to inquire as to whether he is experiencing audiovisual hallucinations, he remains noncommittal. He does appear internally preoccupied. He does not verbalize any SI or HI but is unreliable contract for safety at present. At one point, he says "no sir, it's not Mr. Tian and you know that." Affect is quite flat. Psychiatric interview limited for reasons noted above. Past psychiatric history: Patient alludes to a 30 year history of mental illness. Beyond that, I cannot get much from him. See collateral obtained by nursing staff from patient's outpatient provider, above. Family history: "Well sitter, to tell you the truth, I'm not sure I have much family left." When I inquire as to whether his family had mental illness while they were living, he says "well, yes." Chemical dependency history: "I never really learned how to explain that, sir." Urine toxicology and alcohol level both negative. Social history: When I ask about marital status and children he says "that's the fallacy that I could never explain to you, ." He does not answer when I ask about level of education. When I ask about history he says "I would like to apply for some work." At this point, he tires of the interview and says "I don't want to talk about anymore of that." When I press a little further he says with an air of finality "well, sir, that's enough." Patient is unable or perhaps unwilling to provide me with any contact information for collateral. He says that he needs to think about it. 11/06/16 Above note dictated by Dr. petit reviewed and agreed with. Patient is a 56- year-old male admitted to Dr. Petit service under the Rascon act. Patient seen by me with nurse in his room. Patient is disheveled and malodorous making no eye contact having mumbled answers and is somewhat angry manner. Is vague about auditory hallucinations is vague about compliance medication is vague about having mental illness. Dr. Petit #first opinion petition supporting Rascon act. I agree. Patient does meet criteria for involuntary psychiatric hospitalization under the Rascon act. Thus will cosign second opinion petition supporting Rascon act Tobacco Use In Past 30 Days: No Tobacco Past 30 Days Alcohol Use: Never Hospital Course Patient was admitted to a locked, inpatient psychiatric unit. Appropriate precautions were in place throughout patient's hospital stay. Patient was seen and examined daily on the unit by psychiatry and also visited by counselor. Medications were adjusted. Patient was started on long-acting injectable Invega Sustenna and received a booster dose of Invega Sustenna as recommended by the medical staff physician. Patient tolerated psychotropics well without side effects. Patient did seem to benefit from a small additional dose of oral Invega. Patient's presenting psychiatric symptomatology improved during the course of his hospital stay. There was no evidence of any suicidality or homicidality on the inpatient unit. Patient remained in good behavioral control and was compliant with medications. Charting indicates that in the several days prior to discharge the patient has been sleeping and eating well and participating in unit activities. On the day of discharge: Patient seen and examined with counselor and nurse. Chart reviewed. Case discussed with nursing staff who reports patient has been no behavioral problem. On my examination today, the patient requests discharge from the inpatient psychiatric unit. He feels improved from a psychiatric standpoint with the benefit of psychotropic medications and says that he is able to focus his attention on the outside world as he is less internally preoccupied. He denies any audiovisual hallucinations. I can elicit no delusional beliefs. He denies any suicidal or homicidal ideation. Mood is stable and there are no depressive or hypomanic/manic symptoms in evidence. He is much more spontaneous and interactive today versus yesterday. Patient denies side effects from medications. He has no physical complaints. Weighing the acute, chronic, and protective factors and based on the available evidence, I municipal court judge to a reasonable degree of medical certainty that the patient is at low imminent risk of harm to self or others from a mental illness as defined under the Rascon act and his level of function is adequate for outpatient care. Consequently, the patient does not meet criteria for involuntary psychiatric hospitalization at this time. Given that the patient is requesting discharge from the inpatient psychiatric unit and does not meet criteria for involuntary psychiatric hospitalization, I will arrange for his discharge today with psychiatric follow- up as arranged by counselor. Patient is also to follow-up with primary care. I counseled patient regarding warning signs for need to return to the psychiatric emergency room as part of general safety plan. Results Blood Pressure 129 / 67 Vital Signs Date Time Temp Pulse Resp B/P Pulse Ox O2 Delivery O2 Flow Rate FiO2 11/14/16 06:21 98.0 93 16 129/67 96 Item Value Date Time White Blood Count 10.1 TH/MM3 11/04/16 0235 Hemoglobin 16.6 GM/DL 11/04/16 0235 Platelet Count 360 TH/MM3 11/04/16 0235 Sodium Level 138 MEQ/L 11/07/16 0730 Potassium Level 4.1 MEQ/L 11/07/16 0730 Chloride Level 102 MEQ/L 11/07/16 0730 Carbon Dioxide Level 30.4 MEQ/L 11/07/16 07 Blood Urea Nitrogen 11 MG/DL 11/07/16 0730 Creatinine 0.74 MG/DL 11/07/16 0730 Aspartate Amino Transf (AST/SGOT) 15 U/L 11/04/16 0235 Alanine Aminotransferase (ALT/SGPT) 21 U/L 11/04/16 0235 Alkaline Phosphatase 66 U/L 11/04/16 0235 Summary of Procedures None done Imaging None done Pending results at discharge: No Medications # of Antipsychotic meds at D/C: 1 Approp Antipsych med options 1 - Minimum of three failed multiple trials of monotherapy. 2 - Documented plan to taper to monotherapy due to previous use of multiple meds OR cross-taper in progress at D/C. 3 - Documentation of augmentation of Clozapine. 4 - Justification other than those listed in allowable values 1-3, document here : Discharge Discharge Date: Nov 14, 2016 Discharge Diagnosis: (1) Schizophrenia Diagnosis: Principal (stabilized) ICD Code: F20.9 GAF on discharge is 55. Mental Status Exam at Disch Patient is casually dressed. He is well groomed. He is awake and alert and oriented to person and hospital at least. No abnormal motor movements noted. Stay gait and station. Speech is within normal limits for rate, tone and volume. Language and fund of knowledge seem average. Mood is stable and affect is bright and euthymic. Thought process linear. No loosening of associations. No evident delusions. Denies audiovisual hallucinations. Denies suicidal or homicidal ideation. Insight and judgment are fair. Pt Condition on Discharge: Stable Discharge Disposition: Discharge Home Discharge Instructions Diet Instructions: As Tolerated, No Restrictions Activities you can perform: Weight Bearing as Cassandra Scheduled Appointment: Víctor Hughes Appointment Date: Nov 20, 2016 Appointment Time: 7:30am New Medications: Paliperidone Palmitate Inj (Invega Sustenna Inj) 156 Mg/Ml Inj 156 MG IM Q28D This dose of Invega Sustenna is due on 12/11/2016. Mental Health # 1 Ref 0 VIAL Paliperidone ER (Invega) 3 Mg Tab 3 MG PO BID Please discuss with your outpatient provider tapering off of oral Invega now that you are on Invega Sustenna. Mental Health Days 15 Ref 1 TAB Discontinued Medications: Hydroxyzine Pamoate (Vistaril) 50 Mg Cap 50 MG PO BID Ref 0 CAP Paliperidone ER (Invega) 6 Mg Tab 6 MG PO BID Schizophrenia #30 Ref 0 TAB Discharge Time <= 30 minutes Discharge/Advance Care Plan Health Problems: (1) Schizophrenia Goals to promote your health * To prevent worsening of your condition and complications * To maintain your health at the optimal level Directions to meet your goals Take your medications as prescribed Follow your dietary instruction Follow activity as directed Keep your appointments as scheduled Take your immunizations and boosters as scheduled If your symptoms worsen call your PCP, if no PCP go to Urgent Care Center or Emergency Room For 11/03 questions related to your inpatient stay or results of tests pending at discharge, please contact Dr. Lui Petit at Smoking is Dangerous to Your Health. Avoid second hand smoking Problem Qualifiers (1) Schizophrenia: Qualified Code: F20.3 - Undifferentiated schizophrenia Lui Petit MD Nov 14, 2016 10:53
== END 2016-11-14 15:25 | disposition home or self-care (01) | DRG 885 ==
LOC: NEPA 01:28 → NEDA 11-06 07:50 → H270 11-06 10:46
PROVIDERS: ADMIT Psychiatry & Neurology Psychiatry; ATTEND Psychiatry & Neurology Psychiatry
DX: F20.9 Schizophrenia, unspecified (principal); Z72.0 Tobacco use
CPT/HCPCS: 80048; 80053; 80061; 80307; 83036; 85025; 99285; J2426; Q0163